=== PATIENT | male | born 1990 | race Hispanic/Latino ===

== ENCOUNTER 2018-10-15 17:31 | Emergency (ER) | payer BC | END 2018-10-15 18:30 | disposition home or self-care (01) | LOC: ERS 17:31 | DX: Z04.1 Encounter for examination and observation following transport accident (principal); F17.210 Nicotine dependence, cigarettes, uncomplicated; V43.52XA Car driver injured in collision with other type car in traffic accident, initial encounter | CPT/HCPCS: 99283 ==

== ENCOUNTER 2019-04-13 10:03 | Emergency (ER) | payer OTHER, SELFPAY ==
[2019-04-13] MEDS ORDERED: Ketorolac Tromethamine 60 MG/2 ML VIAL ONE (10:34)
--- NOTE | 2019-04-13 10:55 | RAD ---
Exam: XR Foot Lt 3 View STANDARD HISTORY: Pain on plantar aspect of left foot. COMPARISON: None FINDINGS: The Lisfranc joint is normally aligned. No acute fracture, dislocation, or other acute osseous abnormality is identified. Tiny plantar calcaneal enthesophyte is seen. IMPRESSION: No acute osseous abnormality is identified.
[2019-04-13] MEDS ORDERED: Sulfameth/Trimethoprim DS 800-160mg TAB ONE (11:34)
== END 2019-04-13 11:37 | disposition home or self-care (01) ==
LOC: ERS 10:03
DX: B35.3 Tinea pedis (principal); F17.210 Nicotine dependence, cigarettes, uncomplicated
CPT/HCPCS: J1885